=== PATIENT | female | born 1975 | race Caucasian/White ===

== ENCOUNTER 2021-03-07 17:58 | Emergency (ER) | payer SELFPAY ==
[2021-03-07 17:59] VITALS: BP 132/97; PULSE 92; RESP 15; TEMP 36; O2SAT 95; BMI 53.2
--- NOTE | 2021-03-07 18:11 | ED.VIS.GI ---
HPI HPI - GI History of Present Illness Chief Complaint: Abd Pain PFSH PFSH Medical History (Updated 03/07/21 @ 18:41 by Jh Valenzuela) Alcohol abuse Hypertension no medical history Home Medications NK 03/07/21 [History Last Taken Unknown] Allergy/AdvReac Type Severity Reaction Status Date / Time Penicillins [PCN] Allergy PT UNSURE Verified 03/07/21 18:02 OF REACTION no significant family history Surgical History (Updated 03/07/21 @ 18:[address] Baljinder Trevino MD) History of Social History Smoking Status: Never smoker ROS ROS ED Constitutional Constitutional ED: Reports systems reviewed and no addt'l complaints, except as documented Eyes Eyes: Reports systems reviewed and no addt'l complaints, except as documented ENT ENT ED: Reports systems reviewed and no addt'l complaints, except as documented Cardiovascular Cardiovascular: Reports systems reviewed and no addt'l complaints, except as documented Respiratory/Chest Respiratory/Chest: Reports systems reviewed and no addt'l complaints, except as documented Gastrointestinal Gastrointestinal: Reports systems reviewed and no addt'l complaints, except as documented Genitourinary Genitourinary ED: Reports systems reviewed and no addt'l complaints, except as documented Musculoskeletal Musculoskeletal: Reports systems reviewed and no addt'l complaints, except as documented Integumentary Reports systems reviewed and no addt'l complaints, except as documented Neurologic Neurologic: Reports systems reviewed and no addt'l complaints, except as documented Psychiatric Psychiatric: Reports systems reviewed and no addt'l complaints, except as documented Endocrine Endocrinology: Reports systems reviewed and no addt'l complaints, except as documented Hematologic/Lymphatic Hematologic/Lymphatic: Reports systems reviewed and no addt'l complaints, except as documented Allergic/Immunologic Allergic/Immunologic ED: Reports systems reviewed and no addt'l complaints, except as documented EXAM Physical Exam Const Vital Signs: 03/07/21 17:59 Temperature 96.8 F L Temperature Source Temporal Pulse Rate 92 Respiratory Rate 15 Blood Pressure 132/97 H Blood Pressure Mean 108 Pulse Ox 95 Oxygen Delivery Method Room Air HEENT normocephalic and atraumatic Eyes PERRL and EOMs intact bilaterally Neck no lymphadenopathy and supple Resp normal respiratory effort and clear to auscultation bilaterally Cardio regular rate, regular rhythm and no murmurs GI non-tender, non-distended and no masses GI Narrative: Abdominal exam. Specifically absolutely no right upper quadrant abdominal pain to palpation. No Yepez sign. Auscultation: normoactive bowel sounds Palpation: soft Back/Spine no CVA tenderness Extremity full ROM General Extremety ED: Negative for edema or tenderness General Extremity: Negative for edema Neuro Sensorium / Orientation: alert, oriented to person, oriented to place and oriented to time Motor Exam: strength 5/5 throughout Psych mental status grossly normal and thought process normal Skin no wounds Lesions: no lesions Rashes: no rashes MDM MDM MDM Narrative Medical decision making narrative: Right upper quadrant abdominal pain today that is since totally resolved. No history of gallbladder disease nor stones. No recent pain nor nausea with eating. She denies any other symptoms. No dysuria. No melena. No diarrhea nor constipation. Lab Data Labs: Laboratory Results - last 24 hr 03/07/21 03/07/21 18:40 18:40 WBC 6.7 RBC 4.60 Hgb 13.3 Hct 41.4 MCV 90.0 MCH 28.9 MCHC 32.1 RDW Std Deviation 41.5 RDW Coeff of Renetta 12.6 Plt Count 282 MPV 9.9 Immature Gran % (Auto) 0.100 Neut % (Auto) 62.0 Lymph % (Auto) 24.0 [place] % (Auto) 9.8 Eos % (Auto) 3.1 Baso % (Auto) 1.0 Absolute Neuts (auto) 4.2 Absolute Lymphs (auto) 1.62 Nucleated RBC % 0 Sodium 139 Potassium 3.6 Chloride 104 Carbon Dioxide 30.0 Anion Gap 5 BUN 11 Creatinine 0.83 Estim Creat Clear Calc 74.59 Est GFR (MDRD) Af Amer 94 Est GFR (MDRD) Non-Af 78 BUN/Creatinine Ratio 13.3 Glucose 117 H Calcium 9.0 Total Bilirubin 0.60 AST 12 L ALT 36 Alkaline Phosphatase 74 Total Protein 7.4 Albumin 3.6 Globulin 3.8 Albumin/Globulin Ratio 0.9 Lipase 96 Radiography Diagnostic Testing: Radiology Impression Gallbladder Ultrasound 03/07/21 18:22 IMPRESSION: 1. Obscuration of the pancreas due to bowel gas. 2. Mild fatty infiltration of liver. 3. Otherwise normal right upper quadrant abdominal ultrasound. Electronically Signed: Freddie Vick DO at 19:18 EDT Tel [phone], Service support , CBC, chemistries, liver enzymes and lipase were all normal. Ultrasound showed no acute signs of acute cholecystitis nor cholelithiasis. There was no fluid. There was no Yepez sign. This was all interpreted by the senior quality control technician referred to me. Repeat exam at 7:25 PM patient is doing well. Abdomen is benign. She will be discharged home. EKG EKG normal sinus rhythm rate 89 no acute signs of AK nor ischemia. No dysrhythmia.: Attestation: I personally reviewed and interpreted this EKG as follows: Interpretation: Sinus Rhythm and No Acute Injury Pattern Prior EKG tracings: not available for review Prior: No Prior Discharge Plan Triage Chief Complaint: Abd Pain ED Provider: Baljinder Trevino Dx/Rx/DC Orders Instructions: ED Abdominal Pain Unkn Cause Fem Prescriptions: No Action NK RF: 0 Primary Care Provider: Pino,Ofelia Referrals: Ofelia Pringle, DO [Primary Care Provider] - (Follow-up with your doctor for chronic pain or you are feeling worse. Return to the emergency department if increasing pain, fever or vomiting. All your test today were normal.) Disposition Patient Disposition: Home, self care
--- NOTE | 2021-03-07 18:22 | EKG12_ITS ---
Test Reason : ABD PAIN Blood Pressure : / mmHG Vent. Rate : 089 BPM Atrial Rate : 089 BPM P-R Int : 158 ms QRS Dur : 084 ms QT Int : 352 ms P-R-T Axes : 029 031 014 degrees QTc Int : 428 ms Normal sinus rhythm Normal ECG Confirmed by BRODY FOX, PAM ([id number]), news copy editor RU RANDOLPH ([id number]) on 03/09/2021 9:13:05 AM Referred By: ALPHONSO Confirmed By:PAM SKINNER MD
--- NOTE | 2021-03-07 18:22 | US_ITS ---
STUDY: ABDOMINAL ULTRASOUND - RIGHT UPPER QUADRANT REASON FOR VISIT: Female, 46 years old. Right upper quadrant abdominal pain. TECHNIQUE: Ultrasound evaluation of the right upper quadrant was performed with real-time and static long-scale imaging. TECHNICAL QUALITY: Limited by bowel gas. The patient ate pizza one hour prior to the exam. COMPARISON: None. FINDINGS: Liver: The liver measures 13.8 cm. There is increased echogenicity consistent with fatty infiltration. The bile ducts are within normal limits. There is hepatic color flow. The direction of portal flow is hepatopetal. There is no demonstrated mass lesion. Gallbladder: Normal distended gallbladder. The gallbladder wall measures 2 mm. There is a negative sonographic Yepez''s sign. There is no pericholecystic fluid. There are no gallstones. Common Bile Duct (C.B.D.): The common bile duct measures 3 mm. Pancreas: Obscured by bowel gas . Right Kidney: Normal size of the right kidney. The right kidney measures 10.4 cm. Normal renal cortex. The right cortex measures 1.2 cm. There is no demonstrated renal mass or cyst. There is no right hydronephrosis. US/Gallbladder IMPRESSION: 1. Obscuration of the pancreas due to bowel gas. 2. Mild fatty infiltration of liver. 3. Otherwise normal right upper quadrant abdominal ultrasound. Electronically Signed: Freddie Vick DO at 19:18 EDT Tel [phone], Service support ,
[2021-03-07 18:47] LABS: Absolute Lymphocyte Count 1.62 X10^3/uL (0.83-4.51); Absolute Neutrophil Count 4.2 X10^3/uL (2.0-7.7); Basophil# 0.07 X10^3/uL; Eosinophil# 0.21 X10^3/uL; Eosinophils% 3.1 % (0-5); Hematocrit 41.4 % (37-47); Hemoglobin 13.3 g/dL (12.0-15.0); Lymphocyte # 1.62 X10^3/ul (0.83-4.51); Mean Corp Hgb Conc 32.1 g/dL (32-36); Mean Corpuscular Hgb 28.9 pg (27.0-32.0); Mean Platelet Vol. 9.9 fl (6.2-12.0); Monocyte# 0.66 X10^3/uL; Monocyte% 9.8 % (0-10); NRBC Flagged by Analyzer 0 % (0-5); Neutrophil # 4.17 X10^3/uL (2.7-7.7); Platelet Count 282 K/mm3 (150-450); RBC Distribution Width CV 12.6 % (11.6-14.6); RBC Distribution Width SD 41.5 fl (35.1-43.9); White Blood Count 6.7 K/mm3 (4.4-11.0)
[2021-03-07 19:05] LABS: ALB/GLOB Ratio 0.9 RATIO (0.9-2.4); AST(SGOT) 12 U/L (15-37); Alanine Aminotransfer ALT/SGPT 36 U/L (13-56); Albumin, Serum 3.6 g/dL (3.2-5.0); Alkaline Phosphatase 74 U/L (45-117); Anion Gap 5 (5-15); BUN 11 mg/dL (7-18); BUN/Creat Ratio 13.3 RATIO (10-20); Chloride 104 mmol/L (98-107); Creatinine, Serum 0.83 mg/dL (0.55-1.02); EST Glomerular Filtration Rate 78 mL/min (>60); Est Glom Filt Rate - Afr Amer 94 mL/min (>60); Estimated Creatinine Clearance 74.59 ml/min; Globulin 3.8 g/dL (2.2-4.2); Glucose 117 mg/dL (74-106); Lipase 96 U/L (73-393); Potassium 3.6 mmol/L (3.5-5.1); Protein, Total 7.4 g/dL (6.4-8.2); Sodium Level 139 mmol/L (136-145)
[2021-03-07 19:45] VITALS: BP 130/74; PULSE 74; RESP 16; O2SAT 98
== END 2021-03-07 19:47 | disposition home or self-care (01) ==
LOC: ED 19:30
PROVIDERS: Emergency Provider Emergency Medicine
DX: R10.11 Right upper quadrant pain (principal); I10 Essential (primary) hypertension
CPT/HCPCS: 76705; 80053; 83690; 85025; 93005; 99283; A4216